=== PATIENT | female | born 1945 | race Caucasian/White ===

== ENCOUNTER → 2016-10-09 | Outpatient (CLI) | payer MEDICARE, BC ==
[~2016-10-09] MED LIST: ALPRAZOLAM0.25 M1 PO; CRANBERRY500 M3 PO; FISH OIL1 IU PO; LEVOTHYROXINE0.1 MG PO; MACRODANTIN50 MG/CA1 PO; MASON NATURAL1200 MG PO; NOLVADEX 1010 MG/TAB PO; SYNTHROID0.112 MG/T PO; VITAMIND3 5000 PO; XANAX .25M0.25 MG/TA PO; XYAL5 MG PO; ZOCOR 10MG10 MG PO
== END ==
LOC: MC.RAD 07:51
DX: Z12.31 Encounter for screening mammogram for malignant neoplasm of breast (principal); D24.1 Benign neoplasm of right breast; D24.2 Benign neoplasm of left breast; Z85.3 Personal history of malignant neoplasm of breast

== ENCOUNTER → 2017-04-02 | Outpatient (CLI) | payer MEDICARE, BC ==
[2017-04-02 14:45] VITALS: BP 113/52; PULSE 60; TEMP 98.7
== END ==
LOC: EUO 13:58
DX: M81.0 Age-related osteoporosis without current pathological fracture (principal)
CPT/HCPCS: J3489

== ENCOUNTER → 2017-10-12 | Outpatient (CLI) | payer MEDICARE, BC | LOC: MC.RAD 10:55 | DX: Z12.31 Encounter for screening mammogram for malignant neoplasm of breast (principal); Z98.890 Other specified postprocedural states ==

== ENCOUNTER → 2018-11-04 | Outpatient (CLI) | payer MEDICARE, BC | LOC: MC.RAD 09:45 | DX: Z12.31 Encounter for screening mammogram for malignant neoplasm of breast (principal); Z98.890 Other specified postprocedural states ==

== ENCOUNTER → 2019-05-30 | Outpatient (CLI) | payer MEDICARE, BC | LOC: MC.RAD 09:00 | DX: N60.32 Fibrosclerosis of left breast (principal); Z98.890 Other specified postprocedural states; Z92.3 Personal history of irradiation; Z98.82 Breast implant status | CPT/HCPCS: G0279 ==

== ENCOUNTER → 2019-07-26 | Outpatient (CLI) | payer MEDICARE, BC ==
[2019-07-26 09:55] LABS: COLLECTION METHOD CLEAN CATCH
[2019-07-26 10:30] LABS: PH 8 (5-8); SQUAMOUS EPITHELIAL None Seen /hpf; URINE APPEARANCE Cloudy; URINE BACTERIA Moderate /hpf; URINE BILIRUBIN Negative (NEGATIVE); URINE BLOOD Negative (NEGATIVE); URINE COLOR Yellow; URINE GLUCOSE Negative (NEGATIVE); URINE KETONE Negative (NEGATIVE); URINE LEUKOCYTE ESTERASE Negative (NEGATIVE); URINE NITRATE Negative (NEGATIVE); URINE PROTEIN(semi-quant) Negative (NEGATIVE); URINE RBC 0-2 /hpf; URINE UROBILINOGEN Negative (NEGATIVE)
== END ==
LOC: COL.LAB 09:34
PROVIDERS: Urology
DX: R30.0 Dysuria (principal)

== ENCOUNTER → 2020-01-16 | Outpatient (CLI) | payer MEDICARE | LOC: MC.RAD 15:59 | DX: Z12.31 Encounter for screening mammogram for malignant neoplasm of breast (principal); N64.89 Other specified disorders of breast; Z98.890 Other specified postprocedural states ==

== ENCOUNTER → 2020-01-19 | Outpatient (CLI) | payer MEDICARE | LOC: MC.RAD 08:14 | DX: N64.89 Other specified disorders of breast (principal) | CPT/HCPCS: G0279 ==

== ENCOUNTER → 2020-01-24 | Outpatient (CLI) | payer MEDICARE | LOC: MC.RAD 09:58 | DX: C50.911 Malignant neoplasm of unspecified site of right female breast (principal); Z98.82 Breast implant status ==

== ENCOUNTER 2020-02-21 06:48 | Day surgery (SDC) | payer MEDICARE ==
[2020-02-21] VITALS (8 sets, daily range): BP systolic 118–145; BP diastolic 54–72; PULSE 50–64; TEMP 96.8–97.8
[~2020-02-21] VITALS: Ht 167.6 cm; Wt 73.3 kg
[2020-02-21] MEDS ORDERED: SYNTHROID0.125 MG/T PO (08:19)
[2020-02-21] MEDS ORDERED: MASON NATURAL1200 MG PO (08:20)
[2020-02-21] MEDS ORDERED: VITAMIN D250 MCG PO (08:20)
[2020-02-21] MEDS ORDERED: PHARMASSURE MA500 MG PO (08:20)
[2020-02-21] MEDS ORDERED: CRANBERRY450 MG PO (08:21)
[2020-02-21] MEDS ORDERED: ZOCOR5 MG PO (08:21)
[2020-02-21] MEDS ORDERED: ZOLOFT 50MG50 MG PO (08:21)
--- NOTE | 2020-02-21 12:03 | NUR ---
Patient is taken to the PACU at this time for a pre-op block placement with Denilson Wright CRNA.
[2020-02-21] MEDS ORDERED: NORCO 325 MG-51 TAB PO (13:38)
--- NOTE | 2020-02-21 14:20 | NUR ---
Patient arrives to [facility] via cart, accompanied by SENIOR GEOTECHNICAL ENGINEER Ruma. She is awake, sitting up in bed. She states she has some mild pain on her right side. She thinks this is more related to her broken ribs than to her surgery. Monitoring is applied -VSS on room air. She denies nausea. She quickly falls back asleep after lights are dimmed. Her operative sites are covered by clean, dry, intact dressings. Call light is within reach.
--- NOTE | 2020-02-21 14:35 | NUR ---
VSS on room air. Patient is sleeping.
--- NOTE | 2020-02-21 14:50 | NUR ---
Patient's oxygen levels dropping into the 80s when asleep. 2L oxygen per nasal cannula is applied.
--- NOTE | 2020-02-21 15:05 | NUR ---
Patient is drowsy, resting in room. Denies pain or nausea.
--- NOTE | 2020-02-21 15:20 | NUR ---
VSS and WNL on 2L nasal cannula. Patient remains drowsy. Will continue to monitor.
--- NOTE | 2020-02-21 15:30 | NUR ---
Patient is escorted to the restroom by staff. She voids a large amount of clear, yellow urine. She ambulates back to her room with steady gait. Monitoring is applied and oxygen is 99% on room air. She is offered and receives water and a muffin to eat.
--- NOTE | 2020-02-21 15:50 | NUR ---
Patient has ate/drank. She denies pain or nausea. She has met discharge criteria and would like to go home. Will return with discharge instructions.
--- NOTE | 2020-02-21 16:29 | NUR ---
Discharge instructions are discussed. She denies any questions and verbalizes understanding. PIV is removed with catheter intact and hemostasis achieved. She changes to her clothing independently. She is escorted to the exit via wheelchair by staff. She is discharged to home with ride with daughter in private vehicle at 1629.
== END 2020-02-21 16:29 | disposition home or self-care (01) ==
LOC: SDCO 06:48
DX: C50.911 Malignant neoplasm of unspecified site of right female breast (principal); Z17.0 Estrogen receptor positive status [ER+]; E03.9 Hypothyroidism, unspecified; E78.00 Pure hypercholesterolemia, unspecified; E78.5 Hyperlipidemia, unspecified; M81.0 Age-related osteoporosis without current pathological fracture; Z92.3 Personal history of irradiation; Z90.710 Acquired absence of both cervix and uterus; Z80.41 Family history of malignant neoplasm of ovary; Z80.6 Family history of leukemia; Z88.1 Allergy status to other antibiotic agents; Z88.2 Allergy status to sulfonamides; Z79.899 Other long term (current) drug therapy; Z92.21 Personal history of antineoplastic chemotherapy
CPT/HCPCS: A9541; J2250; J2405; J2704; J2795; J3010; J7120

== ENCOUNTER 2020-07-23 10:00 | Outpatient (RCR) | payer MEDICARE ==
[~2020-07-23 10:00] MED LIST changes: +CRANBERRY450 MG PO; +NORCO 325 MG-51 TAB PO; +PHARMASSURE MA500 MG PO; +SYNTHROID0.125 MG/T PO; +VITAMIN D250 MCG PO; +ZOCOR5 MG PO; +ZOLOFT 50MG50 MG PO
== END 2020-08-06 | disposition home or self-care (01) ==
LOC: MKS.ESL.PT
DX: C50.911 Malignant neoplasm of unspecified site of right female breast (principal); I89.0 Lymphedema, not elsewhere classified; Z92.3 Personal history of irradiation; Z17.0 Estrogen receptor positive status [ER+]

== ENCOUNTER 2020-08-20 11:00 | Outpatient (RCR) | payer MEDICARE | END 2020-11-18 | disposition home or self-care (01) | LOC: MKS.ESL.PT | DX: Z92.3 Personal history of irradiation (principal) ==

== ENCOUNTER → 2021-01-17 | Outpatient (CLI) | payer MEDICARE | LOC: MC.RAD 10:00 | DX: C50.411 Malignant neoplasm of upper-outer quadrant of right female breast (principal); Z98.890 Other specified postprocedural states; Z92.3 Personal history of irradiation; Z98.82 Breast implant status ==

== ENCOUNTER → 2022-03-18 | Outpatient (CLI) | payer MEDICARE | LOC: MC.RAD 11:00 | DX: Z12.31 Encounter for screening mammogram for malignant neoplasm of breast (principal); Z85.3 Personal history of malignant neoplasm of breast ==